=== PATIENT | female | born 1990 | race Two or more races ===

== ENCOUNTER 2018-02-03 18:57 | Inpatient (IN) | payer SELFPAY ==
[~2018-02-03] VITALS: Ht 167.6 cm; Wt 84.2 kg
[2018-02-03] MEDS: LACTATED RINGER'S 1,000 ML IV SCH ×2 (01:13→22:51)
[2018-02-03 19:40] LABS: Basophils # (auto) 0 uL; Basophils % (auto) 0.3 % (0.0-2.0); Eosinophils # (auto) 0.1 uL; Eosinophils % (auto) 0.5 % (0.0-7.0); Hematocrit 35.7 % (36.0-46.0); Lymphocytes # (auto) 1.7 uL; Lymphocytes % (auto) 10.8 % (10.0-50.0); Mean Corpuscular Hemoglobin 30.2 pg (28.0-32.0); Mean Corpuscular Hgb Conc. 33.5 g/dL (32.0-36.0); Mean Corpuscular Volume 90.2 fL (80.0-100.0); Monocytes # (auto) 0.5 uL; Monocytes % (auto) 3.4 % (0.0-12.0); Neutrophils # (auto) 13.7 uL; Platelet Count (auto) 313 10^3/uL (140-450); Red Blood Cells 3.96 10^6/uL (4.0-5.20); Red Cell Distribution Width 13.7 % (11.8-14.3); White Blood Cell 16.1 10^3/uL (4.4-10.8)
[2018-02-03 19:59] LABS: Alanine Aminotransferase 52 U/L (13-56); Albumin 3.6 g/dL (3.4-5.0); Anion Gap 11 (5-15); Aspartate Aminotransferase 22 U/L (15-37); BUN/Creatinine Ratio 13.5; Blood Urea Nitrogen 12 mg/dL (7-18); Calcium 8.4 mg/dL (8.5-10.1); Carbon Dioxide 20 mmol/L (21-32); Chloride 104 mmol/L (98-107); GFR African American 99 mL/min; GFR Non-African American 82 mL/min; Glucose 186 mg/dL (74-106); Sodium 135 mmol/L (136-145)
[2018-02-03 20:03] LABS: Alkaline Phosphatase 67 U/L (45-117); Bilirubin, Total 0.2 mg/dL (0.2-1.0); Total Protein 7.8 g/dL (6.4-8.2)
[2018-02-03] MEDS ORDERED: SODIUM CHLORIDE 0.9% 1,000 ML IVB ONE (20:18)
[2018-02-03] MEDS ORDERED: SUCCINYLCHOLINE CHLORIDE 20 MG/ML 10ML VIAL IV ONE (22:39)
[2018-02-03] MEDS ORDERED: LIDOCAINE 1% INJ PF 5ML AMP ONE (22:39)
[2018-02-03] MEDS ORDERED: ETOMIDATE (2MG/ML) 20ML VIAL IV ONE (22:50)
[2018-02-03] MEDS ORDERED: MIDAZOLAM HCL 1MG/1ML-2 ML VIAL ONE (22:50)
[2018-02-03] MEDS ORDERED: ROCURONIUM 10MG/ML 10ML VIAL IV ONE (22:51)
[2018-02-03 22:54] LABS: INR 0.95 (0.9-1.15); Partial Thromboplastin Time 26.6 sec (23.78-33.04); Prothrombin Time 10.2 sec (9.27-12.13)
[2018-02-03] MEDS ORDERED: ePHEDrine SULFATE 50 MG/ML AMP ONE (23:00)
[2018-02-03] MEDS ORDERED: SODIUM CHLORIDE LOCK 10 ML ONE (23:00)
[2018-02-03] MEDS ORDERED: fentaNYL CITRATE 100 MCG/2 ML VL ONE (23:14)
[2018-02-03] MEDS ORDERED: ceFAZolin 1GM VL ONE (23:34)
[2018-02-03] MEDS ORDERED: ONDANSETRON HCL 4 MG/2 ML VIAL IV ONE (23:45)
[2018-02-03] MEDS ORDERED: HYDROmorphone HCL 2 MG/ML VL IV PRN (23:45)
[2018-02-03] MEDS ORDERED: ePHEDrine SULFATE 50 MG/ML AMP IV PRN (23:45)
[2018-02-03] MEDS ORDERED: METOCLOPRAMIDE HCL 5MG/ml INJ 2ml VIAL IV ONE (23:45)
[2018-02-03] MEDS ORDERED: ACCU-CHEK COMFORT CURVE STRIP VI ONE (23:45)
[2018-02-03] MEDS ORDERED: GLYCOPYRROLATE 0.2 MG/ML 1ML VIAL ONE (23:52)
[2018-02-03] MEDS ORDERED: NEOSTIGMINE 1 MG/ML INJ (10mg/10ML VIAL) ONE (23:52)
[2018-02-04] MEDS ORDERED: MORPHINE SULFATE 4 MG/ML SYR/VIAL IV PRN
[2018-02-04] MEDS ORDERED: ONDANSETRON HCL 4 MG/2 ML VIAL IV PRN
[2018-02-04 00:10] LABS: Urine Bacteria FEW /hpf (None Seen); Urine Blood Negative /uL (Negative); Urine Hyaline Cast FEW /lpf (0 - 2); Urine Mucus FEW (None Seen); Urine Specific Gravity 1.033 (1.001-1.035); Urine WBC 7 /hpf (0 - 5)
[2018-02-04 00:31] LABS: Amphetamine Screen, Urine NEGATIVE (NEGATIVE); Barbiturate Scree,Urine NEGATIVE (NEGATIVE); Benzodiazephine Screen, Urine NEGATIVE (NEGATIVE); Cannabinoid Screen, Urine NEGATIVE (NEGATIVE); Cocaine Screen, Urine NEGATIVE (NEGATIVE); Opiate Scree,Urine NEGATIVE (NEGATIVE); Phencyclidine Screen, Urine NEGATIVE (NEGATIVE)
[2018-02-04] MEDS: HYDROmorphone HCL 2 MG/ML VL IV PRN ×2 (00:35→00:45)
[2018-02-04 01:13] VITALS: BP 104/57
[2018-02-04] MEDS: KETOROLAC TROMETH 30 MG/ML 1ML VIAL IV PRN ×2 (01:32→07:57)
[2018-02-04 04:59] VITALS: BP 97/53
[2018-02-04] MEDS: LACTATED RINGER'S 1,000 ML IV SCH ×6 (05:25→19:53)
[2018-02-04] MEDS: ceFAZolin 1GM/50ML 50 ML IV SCH ×3 (06:52→22:43)
[2018-02-04 07:41] VITALS: BP 94/44
[2018-02-04] MEDS ORDERED: PREN-96 PO (07:51)
[2018-02-04] MEDS ORDERED: ASPI81TA27 PO (07:51)
[2018-02-04] MEDS ORDERED: PROG200C6 PO (07:51)
[2018-02-04 09:22] LABS: Basophils # (auto) 0 uL; Basophils % (auto) 0.1 % (0.0-2.0); Eosinophils # (auto) 0 uL; Hematocrit 23.9 % (36.0-46.0); Monocytes # (auto) 0.6 uL
[2018-02-04 09:24] LABS: Eosinophils % (auto) 0.2 % (0.0-7.0); Lymphocytes # (auto) 1.6 uL; Lymphocytes % (auto) 21.9 % (10.0-50.0); Mean Corpuscular Hemoglobin 30.1 pg (28.0-32.0); Mean Corpuscular Hgb Conc. 33.6 g/dL (32.0-36.0); Mean Corpuscular Volume 89.7 fL (80.0-100.0); Monocytes % (auto) 8.9 % (0.0-12.0); Neutrophils % (auto) 68.9 % (37.0-80.0); Platelet Count (auto) 189 10^3/uL (140-450); Red Blood Cells 2.67 10^6/uL (4.0-5.20); Red Cell Distribution Width 13.6 % (11.8-14.3); White Blood Cell 7.2 10^3/uL (4.4-10.8)
[2018-02-04] MEDS ORDERED: BISACODYL 10 MG RECT SUPP PR PRN (11:15)
[2018-02-04 11:40] VITALS: BP 96/48
[2018-02-04] MEDS: HYDROcodone-ACET 10/325MG TAB PO PRN ×3 (13:37→22:42)
[2018-02-04 16:52] VITALS: BP 91/48
[2018-02-04 21:29] VITALS: BP 96/49
[2018-02-04] MEDS: DOCUSATE SOD 100 MG CAP PO SCH (22:43)
[2018-02-05] VITALS (8 sets, daily range): BP systolic 87–115; BP diastolic 34–66
[2018-02-05] MEDS: LACTATED RINGER'S 1,000 ML IV SCH ×8 (01:21→22:33)
[2018-02-05] MEDS: ceFAZolin 1GM/50ML 50 ML IV SCH ×3 (05:51→22:00)
[2018-02-05] MEDS: HYDROcodone-ACET 10/325MG TAB PO PRN ×4 (06:24→23:02)
[2018-02-05] MEDS: DOCUSATE SOD 100 MG CAP PO SCH ×2 (11:02→23:02)
[2018-02-05 13:59] LABS: Basophils # (auto) 0 uL; Eosinophils # (auto) 0.1 uL; Lymphocytes # (auto) 1.8 uL; Mean Corpuscular Volume 90.1 fL (80.0-100.0); Neutrophils # (auto) 3.6 uL
[2018-02-05 14:03] LABS: Basophils % (auto) 0.4 % (0.0-2.0); Hematocrit 18.7 % (36.0-46.0); Lymphocytes % (auto) 29.9 % (10.0-50.0); Mean Corpuscular Hemoglobin 31.1 pg (28.0-32.0); Mean Corpuscular Hgb Conc. 34.5 g/dL (32.0-36.0); Monocytes # (auto) 0.4 uL; Monocytes % (auto) 7.3 % (0.0-12.0); Neutrophils % (auto) 61.4 % (37.0-80.0); Platelet Count (auto) 169 10^3/uL (140-450); Red Blood Cells 2.08 10^6/uL (4.0-5.20); Red Cell Distribution Width 13.5 % (11.8-14.3); White Blood Cell 5.8 10^3/uL (4.4-10.8)
[2018-02-05 14:06] LABS: Potassium 3.3 mmol/L (3.5-5.1)
[2018-02-05 14:13] LABS: Albumin 2.7 g/dL (3.4-5.0); BUN/Creatinine Ratio 7.4; Bilirubin, Total 0.4 mg/dL (0.2-1.0); Calcium 7.6 mg/dL (8.5-10.1); Hemoglobin 6.5 g/dL (12.2-16.2); Total Protein 5.9 g/dL (6.4-8.2)
[2018-02-05 23:49] LABS: Basophils # (auto) 0 uL; Basophils % (auto) 0.3 % (0.0-2.0); Eosinophils # (auto) 0.1 uL; Lymphocytes # (auto) 2.3 uL; Platelet Count (auto) 152 10^3/uL (140-450); White Blood Cell 6.1 10^3/uL (4.4-10.8)
[2018-02-05 23:51] LABS: Eosinophils % (auto) 0.8 % (0.0-7.0); Hematocrit 21.4 % (36.0-46.0); Lymphocytes % (auto) 38.5 % (10.0-50.0); Mean Corpuscular Hemoglobin 30.5 pg (28.0-32.0); Mean Corpuscular Hgb Conc. 34.3 g/dL (32.0-36.0); Mean Corpuscular Volume 89.2 fL (80.0-100.0); Monocytes # (auto) 0.5 uL; Monocytes % (auto) 7.5 % (0.0-12.0); Neutrophils # (auto) 3.2 uL; Neutrophils % (auto) 52.9 % (37.0-80.0)
[2018-02-05 23:56] LABS: Hemoglobin 7.4 g/dL (12.2-16.2)
[2018-02-06] VITALS (9 sets, daily range): BP systolic 92–112; BP diastolic 41–66
[2018-02-06] MEDS: LACTATED RINGER'S 1,000 ML IV SCH ×5 (04:05→17:25)
[2018-02-06] MEDS: HYDROcodone-ACET 10/325MG TAB PO PRN ×3 (04:26→15:51)
[2018-02-06] MEDS: ceFAZolin 1GM/50ML 50 ML IV SCH ×2 (06:54→14:00)
[2018-02-06 07:57] LABS: Basophils # (auto) 0 uL; Eosinophils # (auto) 0.1 uL; Hemoglobin 8.4 g/dL (12.2-16.2); Monocytes # (auto) 0.4 uL; Neutrophils # (auto) 3.6 uL; Platelet Count (auto) 161 10^3/uL (140-450); White Blood Cell 6.2 10^3/uL (4.4-10.8)
[2018-02-06 07:59] LABS: Basophils % (auto) 0.5 % (0.0-2.0); Eosinophils % (auto) 1.7 % (0.0-7.0); Hematocrit 24.5 % (36.0-46.0); Lymphocytes # (auto) 2.1 uL; Lymphocytes % (auto) 34.3 % (10.0-50.0); Mean Corpuscular Hemoglobin 30.9 pg (28.0-32.0); Mean Corpuscular Hgb Conc. 34.4 g/dL (32.0-36.0); Mean Corpuscular Volume 89.9 fL (80.0-100.0); Monocytes % (auto) 6.1 % (0.0-12.0); Neutrophils % (auto) 57.4 % (37.0-80.0); Red Blood Cells 2.72 10^6/uL (4.0-5.20); Red Cell Distribution Width 14.3 % (11.8-14.3)
[2018-02-06] MEDS: DOCUSATE SOD 100 MG CAP PO SCH (09:25)
== END 2018-02-06 19:00 | disposition home or self-care (01) | DRG 817 ==
LOC: EDBD 18:57 → ER 19:04 → OR 1 22:59 → TELE-EAST 02-04 01:24 → EAST 02-04 10:05
PROVIDERS: ADMIT Obstetrics & Gynecology; ATTEND Obstetrics & Gynecology
PROC: 10T20ZZ Resection of Products of Conception, Ectopic, Open Approach (ICD-10-PCS; principal; 2018-02-04)
PROC: 0UB60ZZ Excision of Left Fallopian Tube, Open Approach (ICD-10-PCS; 2018-02-04)
PROC: 0WCG0ZZ Extirpation of Matter from Peritoneal Cavity, Open Approach (ICD-10-PCS; 2018-02-04)
PROC: 30233N1 Transfusion of Nonautologous Red Blood Cells into Peripheral Vein, Percutaneous Approach (ICD-10-PCS; 2018-02-06)
DX: O00.90 Unspecified ectopic pregnancy without intrauterine pregnancy (principal); K66.1 Hemoperitoneum; O99.011 Anemia complicating pregnancy, first trimester; D64.9 Anemia, unspecified; O26.891 Other specified pregnancy related conditions, first trimester; Z3A.01 Less than 8 weeks gestation of pregnancy; Z87.891 Personal history of nicotine dependence
CPT/HCPCS: 36415; 76801; 80053; 80307; 81001; 82150; 82962; 83690; 83735; 84484; 84702; 85025; 85610; 85730; 86850; 86900; 86901; 86920; 93005; 94761; 96361; 96365; 96375; J0330; J0690; J1885; J2250